=== PATIENT | female | born 1950 | race Caucasian/White ===

== ENCOUNTER 2019-05-25 10:12 | Emergency (ER) | payer MEDICARE, BC ==
--- NOTE | 2019-05-25 10:42 | ED ---
Headache - HPI Summary HPI Summary: This pt is a 68 y/o female presenting [place] [facility]/o intermittent headache for the past couple of days and elevated blood pressure. Pt describes her headache as diffuse throbbing. She notes she used to take antihypertensive medications but her PCP discontinued them 4 years ago when her blood pressure became normal. Pt last saw her PCP 6 weeks ago and her blood pressure was normal. Denies chest pain, SOB. Pt was placed on red yeast rice but was discontinued about 1 week ago due to side effect of abd pain. - History Of Current Complaint Chief Complaint: EDHeadache Stated Complaint: THROBBING HEADACHE/ELEVATED BP PER PT Time Seen by Provider: 05/25/19 10:25 Hx Obtained From: Patient Onset/Duration: Started days ago, Still Present Currently Pain Is: Current Pain Scale(0-10)= - 5, Moderate Timing: Intermittent, Lasting:, Days Character: Throbbing Location of Headache: Diffuse Aggravating Factor: Nothing Allevating Factors: Nothing Associated Signs And Symptoms: Other (Noted In Comments) - NEGATIVE: chest pain , SOB - Allergies/Home Medications Allergies/Adverse Reactions: Allergies Allergy/AdvReac Type Severity Reaction Status Date / Time No Known Allergies Allergy Verified 05/25/19 10:17 Home Medications: Home Medications Areds 2 1 tab PO DAILY 05/25/19 [History Confirmed 05/25/19] PMH/Surg Hx/FS Hx/Imm Hx Cardiovascular History: Reports: Hx Hypertension Musculoskeletal History: Reports: Hx Back Problems Denies: Hx Osteoporosis Sensory History: Reports: Hx Contacts or Glasses, Hx Macular Degeneration Opthamlomology History: Reports: Hx Contacts or Glasses Infectious Disease History: No Infectious Disease History: Denies: Traveled Outside the [place] in Last 30 Days - Family History Known Family History: Negative: Cardiac Disease, Diabetes - Social History Alcohol Use: Daily Alcohol Amount: until last wk (2 glasses wine) Substance Use Type: Reports: None Smoking Status (MU): Never Smoked Tobacco Review of Systems Negative: Fever Negative: Chest Pain Negative: Shortness Of Breath Positive: Headache All Other Systems Reviewed And Are Negative: Yes Physical Exam - Summary Physical Exam Summary: Appearance: Well appearing, no pain distress Skin: warm, dry, reflects adequate perfusion Head/face: normal Eyes: EOMI, KWAKU ENT: normal Neck: supple, non-tender Respiratory: CTA, breath sounds present Cardiovascular: RRR, pulses symmetrical Abdomen: non-tender, soft Musculoskeletal: normal, strength/ROM intact Neuro: normal, sensory motor intact, A&Ox3 Triage Information Reviewed: Yes Vital Signs On Initial Exam: Initial Vitals Temp Pulse Resp BP Pulse Ox 97.8 F 92 16 197/130 98 05/25/19 10:14 05/25/19 10:14 05/25/19 10:14 05/25/19 10:14 05/25/19 10:14 Vital Signs Reviewed: Yes - Fifty Six Coma Scale Best Eye Response: 4 - Spontaneous Best Motor Response: 6 - Obeys Commands Best Verbal Response: 5 - Oriented Coma Scale Total: 15 Diagnostics - Vital Signs Vital Signs Temp Pulse Resp BP Pulse Ox 05/25/19 10:14 97.8 F 92 16 197/130 98 - Laboratory Result Diagrams: 05/25/19 11:05 05/25/19 11:06 Lab Statement: Any lab studies that have been ordered have been reviewed, and results considered in the medical decision making process. - Radiology Chest XR Radiology Interpretation Completed By: Radiologist Summary of Radiographic Findings: IMPRESSION: No active cardiopulmonary disease. Dr. Smith has reviewed this report. - CT Brain CT CT Interpretation Completed By: Radiologist Summary of CT Findings: IMPRESSION: 1. No acute intracranial abnormality. 2. Mild chronic small vessel ischemic disease is likely. 3. Mild cerebral volume loss. Dr. Smith has reviewed this report. - EKG 11:06 Cardiac Rate: NL - at 77 bpm EKG Rhythm: Sinus Rhythm Summary of EKG Findings: No acute changes. Re-Evaluation - Re-Evaluation First Eval Re-Evaluation Time: 12:29 Comment: Reviewed results with pt. She will be discharged home. Headache Course/Dx - Course Assessment/Plan: Pt is a 68 y/o female presenting to [facility] c/o intermittent headache for the past couple of days and elevated blood pressure. She notes she used to take antihypertensive medications but her PCP discontinued them 4 years ago when her blood pressure became normal. Test results are unremarkable. Chest XR is negative for an active cardiopulmonary disease. Brain CT shows 1. No acute intracranial abnormality. 2. Mild chronic small vessel ischemic disease is likely. 3. Mild cerebral volume loss. In the ED course the pt was given Clonidine. Pt will be discharged home with follow up from her PCP. She was given prescriptions for Atenolol. - Diagnoses Provider Diagnoses: Hypertension, Headache Discharge - Sign-Out/Discharge Documenting (check all that apply): Patient Departure - Discharge home Patient Received Moderate/Deep Sedation with Procedure: No - Discharge Plan Condition: Stable Disposition: HOME Prescriptions: Atenolol TAB* [Tenormin TAB* 25 MG] 25 mg PO DAILY #30 tab Patient Education Materials: Dizziness (ED), General Headache (ED) Referrals: Haley Carlson MD [Primary Care Provider] - Additional Instructions: Please follow up with your primary care provider in 3 days. RETURN TO THE ED FOR ANY NEW OR WORSENING SYMPTOMS. - Attestation Statements Document Initiated by Scribe: Yes Documenting Scribe: Danitza Membreno Provider For Whom Scribe is Documenting (Include Credential): Tomy Smith MD Scribe Attestation: Danitza Bravo, scribed for Tomy Smith MD on 05/25/19 at 1232. Status of Scribe Document: Ready
[2019-05-25 11:18] LABS: ABS Eosinophils 0.1 10^3/ul (0-0.6); ABS Lymphocytes 1.4 10^3/ul (1.0-4.8); ABS Monocytes 0.5 10^3/ul (0-0.8); ABS Neutrophils 3.2 10^3/ul (1.5-7.7); Eosinophil % 1.1 %; Hematocrit 39 % (35-47); Hemoglobin 13.3 g/dL (12.0-16.0); Lymphocyte % 26.8 %; Mean Corpuscular HGB Conc 34 g/dL (31-36); Mean Corpuscular Hemoglobin 31 pg (27-31); Mean Corpuscular Volume 90 fL (80-97); Mean Platelet Volume 8.9 fL (7.4-10.4); Platelet Count 240 10^3/uL (150-450); Red Blood Count 4.32 10^6 /uL (3.70-4.87); Red Cell Distribution Width 13 % (10-15); White Blood Count 5.2 10^3/uL (3.5-10.8)
[2019-05-25] MEDS ORDERED: cloNIDine TAB* 0.1 MG PO ONE (11:20)
[2019-05-25 11:36] LABS: Albumin 3.8 g/dL (3.2-5.2); Albumin/Globulin Ratio 1.2 (1-3); BUN/Creatinine Ratio 16.7 (8-20); Calcium 9.1 mg/dL (8.6-10.3); EGFR African American 97.8 (>60); EGFR Non-African American 80.8 (>60); Globulin 3.2 g/dL (2-4); Potassium 4.2 mmol/L (3.5-5.0); Total Bilirubin 0.3 mg/dL (0.2-1.0)
[2019-05-25 13:10] VITALS: BP 143/87
== END 2019-05-25 13:08 | disposition home or self-care (01) ==
LOC: ED 10:12
DX: I10 Essential (primary) hypertension (principal); R51 Headache; G31.89 Other specified degenerative diseases of nervous system
CPT/HCPCS: 36415; 70450; 71045; 80053; 84484; 85025; 93005; 99283; A9270-GY

== ENCOUNTER 2019-08-06 10:45 | Day surgery (SDC) | payer MEDICARE, BC ==
[~2019-08-06 10:45] MED LIST: Lidocaine 1% w EPI 1:200,000* SDV 30 ML VIAL ONE; Sodium Bicarbonate 8.4% IV* 50 ML VIAL ONE
[2019-08-06] MEDS ORDERED: Lidocaine 1% w EPI 1:100,000* MDV 20 ML VIAL ONE (12:08)
[2019-08-06] MEDS ORDERED: Lidocaine 1% w EPI 1:200,000* SDV 30 ML VIAL ONE (12:09)
[2019-08-06] MEDS ORDERED: Bupivacaine 0.25% SDV* 30 ML ONE (13:40)
[2019-08-06 14:03] VITALS: BP 154/87
--- NOTE | 2019-08-06 23:33 | OP ---
DATE OF OPERATION: 08/06/19 [facility] DATE OF : 52 SURGEON: Jorden Marc MD HOME ECONOMICS TEACHER: [place]. ANESTHESIOLOGIST: None. ANESTHESIA: Local only with 1% buffered lidocaine with epinephrine. PRE-OP DIAGNOSIS: Left carpal tunnel syndrome. POST-OP DIAGNOSIS: Left carpal tunnel syndrome. OPERATIVE PROCEDURE: Left open carpal tunnel release. INDICATIONS: Gia has pretty significant carpal tunnel syndrome. We talked about treatment options. She had wanted to proceed. ESTIMATED BLOOD LOSS: 5 mL. COMPLICATIONS: None. FINDINGS: See above and below. DESCRIPTION OF PROCEDURE: Gia was seen in the preoperative holding area. The correct side, site, and procedure were identified via the time-out. I injected the operative site with 1% of buffered lidocaine with epinephrine. We came back to the operating room. The arm was prepped and draped in the usual fashion. I went ahead and made a longitudinal incision in the proximal palm. Dissection was carried down to the subcutaneous tissue and palmar fascia. The transverse carpal ligament was released just off the radial aspect of the hook of hamate. A Genesis retractor was placed and the distal soft tissues were released. The distal fascia was released over the nerve. I then proximally released the subcutaneous tissue and palmar fascia and retracted that out of the way with the Genesis retractor and a self-retainer. I then used a tenotomy scissors to release the remainder of the transverse carpal ligament and the distal antebrachial fascia to a level of several centimeters proximal to the wrist flexion crease. I then looked at the nerve, everything was looking good. The nerve did not look compressed at all at this point, so I went ahead and irrigated out the wound. The skin was closed with 4-0 nylon suture. Soft dressing was applied and she was taken to the recovery room in stable condition. [id number]/[facility] #: [id number] [facility] HOSPITALMónica
== END 2019-08-06 13:55 | disposition home or self-care (01) ==
LOC: OREAST 10:45
PROVIDERS: ATTEND Orthopaedic Surgery Hand Surgery
DX: G56.02 Carpal tunnel syndrome, left upper limb (principal); I10 Essential (primary) hypertension; M19.90 Unspecified osteoarthritis, unspecified site
CPT/HCPCS: J2001; J3490

== ENCOUNTER 2019-08-27 07:14 | Day surgery (SDC) | payer MEDICARE, BC ==
[~2019-08-27 07:14] MED LIST changes: +Buffered Lidocaine 1% SYRIN* 1 ML/SYRINGE INTRADERM ONE; +Lactated Ringers 1000 ML Bag* 1,000 ML IV SCH; -Lidocaine 1% w EPI 1:200,000* SDV 30 ML VIAL ONE; -Sodium Bicarbonate 8.4% IV* 50 ML VIAL ONE
[2019-08-27] MEDS ORDERED: Lidocaine 2% PF * 5 ML VIAL ONE (08:03)
[2019-08-27] MEDS ORDERED: Propofol* 10 MG/ML 20 ML BTL ONE (08:03)
[2019-08-27] MEDS ORDERED: Midazolam* 1 MG/ML 2 ML VIAL (2 MG) ONE (08:04)
[2019-08-27] MEDS ORDERED: fentaNYL* 50 MCG/ML 2 ML VIAL (100 MCG VIAL) ONE (08:04)
[2019-08-27] MEDS ORDERED: Bupivacaine 0.25% SDV* 30 ML ONE (09:18)
[2019-08-27] MEDS ORDERED: Lidocaine 1% w EPI 1:100,000* MDV 20 ML VIAL ONE (09:18)
[2019-08-27] MEDS ORDERED: Naloxone* 0.4 MG/ML 1 ML VIAL IV PRN (09:53)
[2019-08-27] MEDS ORDERED: Acetaminophen TAB* 325 MG PO PRN (09:53)
[2019-08-27] MEDS ORDERED: fentaNYL* 50 MCG/ML 2 ML VIAL (100 MCG VIAL) IV PRN (09:53)
[2019-08-27] MEDS ORDERED: Ondansetron INJ* 2 MG/ML VIAL IV PRN (09:53)
[2019-08-27] MEDS ORDERED: oxyCODONE TAB* 5 MG TAB PO PRN (09:53)
--- NOTE | 2019-08-27 10:50 | OP ---
DATE OF OPERATION: 08/27/19 [facility] DATE OF : 52 SURGEON: Jorden Marc MD. STEAK TENDERIZER MACHINE: None. ANESTHESIOLOGIST: Dr. Cuellar. ANESTHESIA: Local MAC. PRE-OP DIAGNOSIS: Right carpal tunnel syndrome. POST-OP DIAGNOSIS: Right carpal tunnel syndrome. OPERATIVE PROCEDURE: Right open carpal tunnel release. INDICATIONS: Ms. Arndt has carpal tunnel syndrome. She has done well with the release on the contralateral side. We talked about risks and benefits and she wanted to proceed with release on the right. ESTIMATED BLOOD LOSS: 2 mL. COMPLICATIONS: None. FINDINGS: See above and below. DESCRIPTION OF PROCEDURE: Ms. Arndt was seen in the preoperative holding area and the correct site, side, and procedure were identified. We came back to the operating room. The arm was prepped and draped in the usual fashion, and time- out was performed. The arm was exsanguinated with the Esmarch and the tourniquet inflated. A 2 to 3 cm longitudinal incision in the proximal palm was then made. Dissection was carried down through the subcutaneous tissue and palmar fascia. The transverse carpal ligament was released just off the radial aspect of the hook of the hamate. The release was completed distally and proximally with the tenotomy scissors under direct visualization. Once I had confirmed the release and everything was looking good, I irrigated out the wound. Skin was closed with 4- 0 nylon suture. A soft dressing was applied, and she was taken to the recovery room in stable condition. [id number]/[facility] #: [id number] MTDD
[2019-08-27 10:58] VITALS: BP 104/72
== END 2019-08-27 10:55 | disposition home or self-care (01) ==
LOC: OREAST 07:14
PROVIDERS: ATTEND Orthopaedic Surgery Hand Surgery
PROC: 01N50ZZ Release Median Nerve, Open Approach (ICD-10-PCS; principal; 2019-08-27 08:45)
DX: G56.03 Carpal tunnel syndrome, bilateral upper limbs (principal); I10 Essential (primary) hypertension; M15.9 Polyosteoarthritis, unspecified; Z90.710 Acquired absence of both cervix and uterus
CPT/HCPCS: J2250; J2704; J3010; J3490